=== PATIENT | male | born 1965 | race African-American/Black ===

== ENCOUNTER 2018-02-13 13:52 | Inpatient (IN) | payer OTHER ==
[2018-02-13 14:25] VITALS: BMI 22.1
--- NOTE | 2018-02-13 17:01 | HP ---
CIWA Score - CIWA Score Nausea/Vomitin Muscle Tremors: 2 Anxiety: 0-No Anxiety, at Ease Agitation: 1-Slight > Activity Paroxysmal Sweats: 2 Orientation: 1-Uncertain about Date Tacttile Disturbances: 0-None Auditory Disturbances: 1-Very Mild Visual Disturbances: 0-None Headache: 3-Moderate CIWA-Ar Total Score: 13 Admission ROS BHS - HPI Chief Complaint: I am here for detox, I am an alcoholic Allergies/Adverse Reactions: Allergies Allergy/AdvReac Type Severity Reaction Status Date / Time Fish Containing Products Allergy Severe Swelling Verified 02/13/18 16:47 Penicillins Allergy Severe Swelling Verified 02/13/18 16:47 History of Present Illness: 52 yo male with hx of nicotine, alcohol and cocaine dependence is here seeking detox. PMHX: hypelipdemia, alcophol relates seizure last episode 2015, right hip nreplacmeent 2011, bipolar d/o. Denies suicidla / homcidal ideationm or suicide attemtps. last detox three months ago at [facility]. Longest period of sobrierity 6 months. Exam Limitations: No Limitations - Ebola screening Have you traveled outside of the country in the last 21 days: No Have you had contact with anyone from an Ebola affected area: No Have you been sick,other than usual withdrawal symptoms: No Do you have a fever: No - Review of Systems Constitutional: Chills, Diaphoresis, Loss of Appetite, Changes in sleep, Unintentional Wgt. Loss (20 lbs) Respiratory: reports: No Symptoms reported Cardiac: reports: No Symptoms Reported GI: reports: Diarrhea, Nausea, Poor Appetite, Poor Fluid Intake, Vomiting : reports: Incontinence Musculoskeletal: reports: Back Pain (low midline) Integumentary: reports: No Symptoms Reported Neuro: reports: See HPI, Headache Endocrine: reports: Increased Thirst Hematology: reports: No Symptoms Reported Psychiatric: reports: Orientated x3, Depressed Other Systems: Reviewed and Negative Patient History - Patient Medical History Hx Anemia: No Hx Asthma: No Hx Chronic Obstructive Pulmonary Disease (COPD): No Hx Cancer: No Hx Cardiac Disorders: No Hx Congestive Heart Failure: No Hx Hypertension: No Hx Hypercholesterolemia: Yes (no meds ) Hx Pacemaker: No HX Cerebrovascular Accident: No Hx Seizures: No (2016 last episode ) Hx Dementia: No Hx Diabetes: No Hx Gastrointestinal Disorders: No Hx Liver Disease: No Hx Genitourinary Disorders: No Hx Sexually Transmitted Disorders: No Hx Renal Disease (ESRD): No Hx Thyroid Disease: No Hx Human Immunodeficiency Virus (HIV): No Hx Hepatitis C: No Hx Depression: Yes Hx Suicide Attempt: No Hx Bipolar Disorder: Yes Hx Schizophrenia: No - Patient Surgical History Past Surgical History: Yes Hx Neurologic Surgery: No Hx Cataract Extraction: No Hx Cardiac Surgery: No Hx Lung Surgery: No Hx Breast Surgery: No Hx Breast Biopsy: No Hx Abdominal Surgery: No Hx Appendectomy: No Hx Cholecystectomy: No Hx Genitourinary Surgery: No Hx Section: No Hx Orthopedic Surgery: Yes (R hip replacement in 2011) Hx Hysterectomy: No Anesthesia Reaction: No - PPD History Previous Implant?: Yes Documented Results: Negative w/o proof Implanted On Prior [facility] Admission?: No PPD to be Administered?: Yes - Reproductive History Patient is a Female of Child Bearing Age (11 -55 yrs old): No - Smoking Cessation Smoking history: Current every day smoker Have you smoked in the past 12 months: Yes Aproximately how many cigarettes per day: 20 Hx Chewing Tobacco Use: No Initiated information on smoking cessation: Yes 'Breaking Loose' booklet given: 02/13/18 - Substance & Tx. History Hx Alcohol Use: Yes Hx Substance Use: Yes Substance Use Type: Alcohol Hx Substance Use Treatment: Yes ([facility] three months ago ) - Substances Abused Alcohol Route: Oral Frequency: Daily Amount used: 3 PINTS VODKA Age of first use: 14 Date of Last Use: 02/12/18 Crack Route: Smoking Frequency: 3-6 times per week Amount used: $50 Age of first use: 28 Date of Last Use: 02/11/18 Family Disease History - Family Disease History Family Disease History: [place]: Father (), Mother ( ), Other: Father, Mother Admission Physical Exam BHS - Vital Signs Vital Signs: Vital Signs - 24 hr 02/13/18 14:20 Temperature 96.8 F L Pulse Rate 66 Respiratory 18 Rate Blood Pressure 107/61 - Physical General Appearance: Yes: Disheveled, Alcohol on Breath, Thin, Other (malodorous) HEENTM: Yes: EOMI, Hearing grossly Normal, Normal ENT Inspection, Normocephalic , Normal Voice, JOYCELYN, Pharynx Normal, Tm's normal, Other (poor dentitionm, wears glasses, dry oral mucosa) Respiratory: Yes: Chest Non-Tender, Lungs Clear, Normal Breath Sounds, No Respiratory Distress, No Accessory Muscle Use Neck: Yes: No masses,lesions,Nodules, Trachea in good position Breast: Yes: Breast Exam Deferred Cardiology: Yes: Regular Rhythm, Regular Rate Abdominal: Yes: Normal Bowel Sounds, Non Tender, Flat, Soft Genitourinary: Yes: Within Normal Limits Back: Yes: Normal Inspection Musculoskeletal: Yes: full range of Motion, Gait Steady, Pelvis Stable, Back pain Extremities: Yes: Normal Capillary Refill, Normal Inspection, Normal Range of Motion, Non-Tender Neurological: Yes: software technical lead II-XII NML intact, Fully Oriented, Alert, Motor Strength 5/5, Depressed Affect Integumentary: Yes: Normal Color, Warm, Moist Lymphatic: Yes: Within Normal Limits - Addiitonal Findings: utox positive benzo, reports "someone gave him a pill and I dont know what it was." Denies benzo use. - Diagnostic (1) Alcohol dependence with withdrawal Current Visit: Yes Status: Acute Qualifiers: Complication of substance-induced condition: uncomplicated Qualified Code(s ): F10.230 - Alcohol dependence with withdrawal, uncomplicated (2) Cocaine dependence Current Visit: Yes Status: Acute Qualifiers: Substance use status: uncomplicated Qualified Code(s): F14.20 - Cocaine dependence, uncomplicated (3) Hypercholesteremia Current Visit: Yes Status: Acute (4) Weight loss Current Visit: Yes Status: Acute (5) Psychiatric disorder Current Visit: Yes Status: Suspected (6) Urinary incontinence Current Visit: Yes Status: Acute Qualifiers: Urinary Incontinence type: unspecified incontinence Qualified Code(s): R32 - Unspecified urinary incontinence (7) Dehydration Current Visit: Yes Status: Acute Cleared for Admission S - Detox or Rehab [facility] Level of Care: Medically Managed Detox Regimen/Protocol: Librium [facility] Breath Alcohol Content Breath Alcohol Content: 0 Urine Drug Screen - Results Drug Screen Negative: Yes Urine Drug Screen Results: ANMOL-Cocaine, BZO-Benzodiazepines
[2018-02-13] MEDS ORDERED: LOPERAMIDE HCL 2 MG CAPSULE PO PRN (17:18)
[2018-02-13] MEDS ORDERED: MAGNESIUM CITRATE 300 ML BOTTLE PO PRN (17:18)
[2018-02-13] MEDS ORDERED: IBUPROFEN 400 MG TABLET (FP) PO PRN (17:18)
[2018-02-13] MEDS ORDERED: MENTHOL/PHENOL 1 EACH UD MM PRN (17:18)
[2018-02-13] MEDS ORDERED: P-EPHED 60MG/TRIPROLIDI 2.5MG TABLET PO PRN (17:18)
[2018-02-13] MEDS ORDERED: hydrOXYzine PAMOATE 50 MG CAPSULE (FP) PO PRN (17:18)
[2018-02-13] MEDS ORDERED: chlordiazePOXIDE HCL 25 MG CAPSULE PO PRN (17:18)
[2018-02-13] MEDS ORDERED: MAGNESIUM HYDROX 2400MG/30ML ORAL SUSPENSION 30 ML CUP PO PRN (17:18)
[2018-02-13] MEDS ORDERED: ACETAMINOPHEN 325 MG TABLET (FP) PO PRN (17:18)
[2018-02-13] MEDS ORDERED: NICOTINE POLACRILEX 2 MG GUM BC PRN (17:18)
[2018-02-13] MEDS ORDERED: guaiFENesin/D-METHORPHAN HB 10 ML UNIT-DOSE CUPS PO PRN (17:18)
[2018-02-13] MEDS ORDERED: MAG HYDROX/AL HYDROX/SIMETH 30 ML UNIT-DOSE CUP PO PRN (17:18)
[2018-02-13] MEDS: chlordiazePOXIDE HCL 25 MG CAPSULE PO SCH (22:16)
[2018-02-13] MEDS: THIAMINE HCL 100 MG TABLET (FP) PO SCH (22:16)
[2018-02-13] MEDS: MELATONIN 5 MG TABLETS PO PRN (22:17)
[2018-02-13 23:13] LABS: URINE APPEARANCE CLEAR; URINE BILIRUBIN NEGATIVE (<2.0 mg/dL); URINE COLOR YELLOW; URINE GLUCOSE (UA) NEGATIVE (NEGATIVE); URINE KETONE NEGATIVE (NEGATIVE); URINE LEUK ESTERASE NEGATIVE (NEGATIVE); URINE NITRITE NEGATIVE (NEGATIVE); URINE PROTEIN NEGATIVE (NEGATIVE); URINE UROBILINOGEN 4.0 E.U/dl mg/dL (0.2-1.0)
[2018-02-14] MEDS: chlordiazePOXIDE HCL 25 MG CAPSULE PO SCH ×4 (06:23→22:08)
[2018-02-14 09:50] LABS: HEMATOCRIT 35.5 % (35.4-49); HEMOGLOBIN 11.7 GM/dL (11.7-16.9); MCH 31.5 pg (25.7-33.7); MCHC 32.9 g/dl (32.0-35.9); MEAN CELL VOLUME 95.8 fl (80-96); MEAN PLT VOLUME 7.7 fl (7.5-11.1); PLATELET COUNT 366 K/MM3 (134-434); RBC 3.71 M/mm3 (4.00-5.60); RDW 16.8 % (11.9-15.9); WHITE BLOOD COUNT 8.5 K/mm3 (4.0-10.0)
--- NOTE | 2018-02-14 09:50 | EKG ---
Test Reason : Blood Pressure : / mmHG Vent. Rate : 062 BPM Atrial Rate : 062 BPM P-R Int : 158 ms QRS Dur : 094 ms QT Int : 444 ms P-R-T Axes : 079 071 078 degrees QTc Int : 450 ms NORMAL SINUS RHYTHM POSSIBLE LEFT ATRIAL ENLARGEMENT LEFT VENTRICULAR HYPERTROPHY ABNORMAL ECG NO PREVIOUS ECGS AVAILABLE Confirmed by JOLENE INGRAM MD ([id number]) on 02/14/2018 9:50:26 AM Referred By: Confirmed By:JOLENE INGRAM MD
[2018-02-14] MEDS: NICOTINE 21 MG/24 HOURS TOPICAL PATCH TD SCH (10:13)
[2018-02-14] MEDS: PRENATAL VITAMINS W/ FOLIC ACID TABLET (FP) PO SCH (10:13)
[2018-02-14 10:47] LABS: ALK PHOS 69 U/L (45-117); ANION GAP 5 (8-16); BILIRUBIN,TOTAL 0.1 mg/dL (0.2-1.0); BLOOD UREA NITROGEN 12 mg/dL (7-18); CALCIUM 8.4 mg/dL (8.5-10.1); CHLORIDE 107 mmol/L (98-107); CO2 29 mmol/L (21-32); CREATININE 0.7 mg/dL (0.7-1.3); GLUCOSE,RANDOM 95 mg/dL (74-106); POTASSIUM 3.7 mmol/L (3.5-5.1); SGOT/AST 22 U/L (15-37); SGPT/ALT 20 U/L (12-78); SODIUM 141 mmol/L (136-145); TOT PROT 5.9 g/dl (6.4-8.2)
[2018-02-14] MEDS ORDERED: PNEUMOCOCCAL 23 VACCINE 0.5 ML VIAL IM ONE (12:00)
[2018-02-14] MEDS ORDERED: PNEUMOC 13-VAL CONJ-DIP CRM/PF 0.5 ML DISP.SYRIN IM ONE (12:00)
--- NOTE | 2018-02-14 12:58 | PN ---
[facility] CIWA - CIWA Score Nausea/Vomitin-No Nausea/No Vomiting Muscle Tremors: 4-Moderate,w/Arms Extend Anxiety: 4-Mod. Anxious/Guarded Agitation: 4-Moderately Restless Paroxysmal Sweats: 1-Minimal Palms Moist Orientation: 0-Oriented Tacttile Disturbances: 3-Moderate Itch/Numb/Burn Auditory Disturbances: 0-None Visual Disturbances: 0-None Headache: 0-None Present CIWA-Ar Total Score: 16 S Progress Note (SOAP) Subjective: ANXIETY,SWEATS,SLIGHT TREMORS,FATIGUE. DENIES DIZZINESS. ALERT O X 3. Objective: 02/14/18 12:54 Vital Signs Temperature 96.9 F L 02/14/18 10:04 Pulse Rate 68 02/14/18 10:04 Respiratory Rate 16 02/14/18 10:04 Blood Pressure 94/52 02/14/18 10:04 O2 Sat by Pulse Oximetry (%) Laboratory Tests 02/13/18 02/14/18 02/14/18 19:53 07:30 07:30 WBC 8.5 RBC 3.71 L Hgb 11.7 Hct 35.5 MCV 95.8 MCH 31.5 MCHC 32.9 RDW 16.8 H Plt Count 366 MPV 7.7 Sodium 141 Potassium 3.7 Chloride 107 Carbon Dioxide 29 Anion Gap 5 L BUN 12 Creatinine 0.7 Creat Clearance w eGFR > 60 Random Glucose 95 Calcium 8.4 L Total Bilirubin 0.1 L AST 22 ALT 20 Alkaline Phosphatase 69 Total Protein 5.9 L Albumin 3.0 L Urine Color Yellow Urine Appearance Clear Urine pH 6.0 Ur Specific [place] 1.024 Urine Protein Negative Urine Glucose (UA) Negative Urine Ketones Negative Urine Blood Negative Urine Nitrite Negative Urine Bilirubin Negative Urine Urobilinogen 4.0 e.u/dl Ur Leukocyte Esterase Negative RPR Titer HIV 1&2 Antibody Screen HIV P24 Antigen 02/14/18 02/14/18 07:30 07:30 WBC RBC Hgb Hct MCV MCH MCHC RDW Plt Count MPV Sodium Potassium Chloride Carbon Dioxide Anion Gap BUN Creatinine Creat Clearance w eGFR Random Glucose Calcium Total Bilirubin AST ALT Alkaline Phosphatase Total Protein Albumin Urine Color Urine Appearance Urine pH Ur Specific [place] Urine Protein Urine Glucose (UA) Urine Ketones Urine Blood Urine Nitrite Urine Bilirubin Urine Urobilinogen Ur Leukocyte Esterase RPR Titer Nonreactive HIV 1&2 Antibody Screen Negative HIV P24 Antigen Negative Assessment: 02/14/18 12:58 WITHDRAWAL SX Plan: CONTINUE DETOX INCREASE PO FLUIDS. PITCHER BY BEDSIDE.
--- NOTE | 2018-02-14 13:34 | CONSULT ---
[facility] Psychiatric Consult - Data Date of interview: 02/14/18 Admission source: [facility] Identifying data: Readmission to [facility] for this 52 y/o AA male seeking detox treatment on for alcohol,cocaine and cannabis dependence.Patient is single without children,homeless,unemployed and supported on Public Assistance. Substance Abuse History: Confirmed by patient in this interview.Details in current [facility] report as followed : Smoking history: Current every day smoker. Have you smoked in the past 12 months: Yes. Aproximately how many cigarettes per day: 20. Hx Chewing Tobacco Use: No. Initiated information on smoking cessation: Yes. 'Breaking Loose' booklet given: 02/13/18. - Substance & Tx. History. Hx Alcohol Use: Yes. Hx Substance Use: Yes. Substance Use Type: Alcohol. Hx Substance Use Treatment: Yes ([facility] three months ago ) . - Substances Abused. Alcohol. Route: Oral. Frequency: Daily. Amount used: 3 PINTS VODKA. Age of first use: 14. Date of Last Use: 02/12/18. Crack. Route: Smoking. Frequency: 3-6 times per week. Amount used: $50. Age of first use: 28. Date of Last Use: 02/11/18 Medical History: Patient endorses good general health.Noted history of right hip replacement (2011). Psychiatric History: Diagnosed with Schizoaffective Disorder as per self- report.Patient admits to " a few " psychiatric hospitalizations ([facility]Used to be prescribed seroquel 300 mg/hs + buspar 30 mg/day + remeron 15 mg/hs.NOT taken for " more than three weeks ".Mr Fernandez reports no contact with regular [employer] care providers. " I go to emergency rooms to get my refills or when I get sick." Patient endorses two suicide attempts (ingestion of bleach / deliberate exposure to oncoming traffic ) in 2017. Physical/Sexual Abuse/Trauma History: Patient denies. Additional Comment: Urine Drug Screen Results: ANMOL-Cocaine, BZO- Benzodiazepines.Noted. Mental Status Exam - Mental Status Exam Alert and Oriented to: Time, Place, Person Cognitive Function: Good Patient Appearance: Disheveled Mood: Nervous, Withdrawn Affect: Mood Congruent Patient Behavior: Fatigued, Appropriate, Cooperative Speech Pattern: Clear Voice Loudness: Normal Thought Process: Intact, Goal Oriented Thought Disorder: Not Present Hallucinations: Denies Suicidal Ideation: Denies Homicidal Ideation: Denies Insight/Judgement: Poor Sleep: Poorly, Difficulty falling asleep Appetite: Good Muscle strength/Tone: Normal Gait/Station: Normal Psychiatric Findings - Problem List ([place] 1, 2,3) (1) Alcohol dependence with withdrawal Current Visit: Yes Status: Acute Qualifiers: Complication of substance-induced condition: uncomplicated Qualified Code(s ): F10.230 - Alcohol dependence with withdrawal, uncomplicated (2) Cocaine dependence Current Visit: Yes Status: Acute Qualifiers: Substance use status: uncomplicated Qualified Code(s): F14.20 - Cocaine dependence, uncomplicated (3) Nicotine dependence Current Visit: Yes Status: Acute (4) Substance induced mood disorder Current Visit: Yes Status: Acute (5) Schizoaffective disorder Current Visit: Yes Status: Chronic (6) Insomnia Current Visit: Yes Status: Acute (7) Non compliance w medication regimen Current Visit: Yes Status: Chronic - Initial Treatment Plan Initial Treatment Plan: Psychoeducation.Sleep hygiene.Detoxification.Medications : seroquel is held in view of hypotension + remeron 7.5 mg po hs.Side effects/benefits of both drugs are discussed with the oatient.Mr Fernandez agrees with this careplan.Observation.Reconciliation of medications : none found on file.
[2018-02-14] MEDS: MIRTAZAPINE 15 MG TABLET (FP) PO SCH (22:08)
[2018-02-14] MEDS: THIAMINE HCL 100 MG TABLET (FP) PO SCH (22:09)
[2018-02-14] MEDS: MELATONIN 5 MG TABLETS PO PRN (22:10)
[2018-02-15] MEDS: chlordiazePOXIDE HCL 25 MG CAPSULE PO SCH ×3 (05:55→17:51)
[2018-02-15] MEDS: PRENATAL VITAMINS W/ FOLIC ACID TABLET (FP) PO SCH (10:33)
[2018-02-15] MEDS: NICOTINE 21 MG/24 HOURS TOPICAL PATCH TD SCH (10:34)
--- NOTE | 2018-02-15 14:13 | PN ---
S CIWA - CIWA Score Nausea/Vomitin-No Nausea/No Vomiting Muscle Tremors: 3 Anxiety: 0-No Anxiety, at Ease Agitation: 2 Paroxysmal Sweats: 3 Orientation: 0-Oriented Tacttile Disturbances: 2-Mild Itch/Numbness/Burn Auditory Disturbances: 0-None Visual Disturbances: 2-Mild Sensitivity Headache: 3-Moderate CIWA-Ar Total Score: 15 BHS Progress Note (SOAP) Subjective: Body Aches, H/A, Sweating, Fatigue, Tremors. Objective: PATIENT A & O X 3. NO ACUTE DISTRESS. 02/15/18 14:13 Vital Signs Temperature 95.8 F L 02/15/18 09:26 Pulse Rate 77 02/15/18 09:26 Respiratory Rate 16 02/15/18 09:26 Blood Pressure 108/60 02/15/18 09:26 O2 Sat by Pulse Oximetry (%) Laboratory Tests 02/13/18 02/14/18 02/14/18 19:53 07:30 07:30 WBC 8.5 RBC 3.71 L Hgb 11.7 Hct 35.5 MCV 95.8 MCH 31.5 MCHC 32.9 RDW 16.8 H Plt Count 366 MPV 7.7 Sodium 141 Potassium 3.7 Chloride 107 Carbon Dioxide 29 Anion Gap 5 L BUN 12 Creatinine 0.7 Creat Clearance w eGFR > 60 Random Glucose 95 Calcium 8.4 L Total Bilirubin 0.1 L AST 22 ALT 20 Alkaline Phosphatase 69 Total Protein 5.9 L Albumin 3.0 L Urine Color Yellow Urine Appearance Clear Urine pH 6.0 Ur Specific [place] 1.024 Urine Protein Negative Urine Glucose (UA) Negative Urine Ketones Negative Urine Blood Negative Urine Nitrite Negative Urine Bilirubin Negative Urine Urobilinogen 4.0 e.u/dl Ur Leukocyte Esterase Negative RPR Titer HIV 1&2 Antibody Screen HIV P24 Antigen 02/14/18 02/14/18 07:30 07:30 WBC RBC Hgb Hct MCV MCH MCHC RDW Plt Count MPV Sodium Potassium Chloride Carbon Dioxide Anion Gap BUN Creatinine Creat Clearance w eGFR Random Glucose Calcium Total Bilirubin AST ALT Alkaline Phosphatase Total Protein Albumin Urine Color Urine Appearance Urine pH Ur Specific [place] Urine Protein Urine Glucose (UA) Urine Ketones Urine Blood Urine Nitrite Urine Bilirubin Urine Urobilinogen Ur Leukocyte Esterase RPR Titer Nonreactive HIV 1&2 Antibody Screen Negative HIV P24 Antigen Negative LABS NOTED. Assessment: 02/15/18 14:14 WITHDRAWAL SYMPTOMS. Plan: CONTINUE DETOX. INCREASE DAILY PO FLUID INTAKE.
--- NOTE | 2018-02-15 14:40 | EKG ---
Test Reason : Blood Pressure : / mmHG Vent. Rate : 068 BPM Atrial Rate : 068 BPM P-R Int : 162 ms QRS Dur : 096 ms QT Int : 440 ms P-R-T Axes : 077 068 081 degrees QTc Int : 467 ms NORMAL SINUS RHYTHM MINIMAL VOLTAGE CRITERIA FOR LVH, MAY BE NORMAL VARIANT NONSPECIFIC T WAVE ABNORMALITY PROLONGED QT ABNORMAL ECG WHEN COMPARED WITH ECG OF 13-FEB-2018 19:16, T WAVE INVERSION NOW EVIDENT IN ANTERIOR LEADS Confirmed by MD Bhavesh, Rodrigo ([id number]) on 02/15/2018 2:40:16 PM Referred By: Confirmed By:Rodrigo Ospina MD
--- NOTE | 2018-02-15 18:52 | PN ---
Psychiatric Progress Note Vital Signs: Vital Signs Period Temp Pulse Resp BP Sys/Cates Pulse Ox Last 24 Hr 95.8 F-97.9 F 69-77 16-18 95-116/55-64 Date of Session: 02/15/18 Chief Complaint:: " My blood pressure is fine now.I need my seroquel to sleep." HPI: Psychiatric reconsultation is sought for medication management.Patient is doing fine.Mr Fernandez is currently complaining of insomnia and he is requesting a dose of seroquel at bedtime. Current Medications: Active Medications Generic Name Dose Route Start Last Admin Trade Name Freq PRN Reason Stop Dose Admin Acetaminophen 650 mg 02/13/18 17:18 Tylenol - PO Q4H PRN FEVER Al Hydroxide/Mg Hydroxide 30 ml 02/13/18 17:18 Mylanta Oral Suspension - PO Q6H PRN DYSPEPSIA Chlordiazepoxide HCl 15 mg 02/15/18 23:00 Librium - PO 02/16/18 17:01 [id number] RUPERTO Chlordiazepoxide HCl 25 mg 02/13/18 17:18 02/13/18 19:11 Librium - PO 02/16/18 17:17 25 mg Q4H PRN Administration WITHDRAWAL(CONT SUBST) Chlordiazepoxide HCl 10 mg 02/16/18 23:00 Librium - PO 02/17/18 17:01 [id number] RUPERTO Eucalyptus/Menthol/Phenol/Sorbitol 1 each 02/13/18 17:18 Cepastat Lozenge - MM Q4H PRN SORE THROAT Guaifenesin 10 ml 02/13/18 17:18 Robitussin Dm - PO Q6H PRN COUGH Hydroxyzine Pamoate 50 mg 02/13/18 17:18 Vistaril - PO Q4H PRN AGITATION Ibuprofen 400 mg 02/13/18 17:18 Motrin - PO Q6H PRN PAIN LEVEL 4-6 Loperamide HCl 4 mg 02/13/18 17:18 Imodium - PO Q6H PRN DIARRHEA Magnesium Citrate 300 ml 02/13/18 17:18 Citroma - PO Q48H PRN CONSTIPATION Magnesium Hydroxide 30 ml 02/13/18 17:18 Milk Of Magnesia - PO DAILY PRN CONSTIPATION Melatonin 5 mg 02/13/18 22:00 02/14/18 22:10 Melatonin PO 5 mg HS PRN Administration INSOMNIA Mirtazapine 7.5 mg 02/14/18 22:00 02/14/18 22:08 Remeron - PO 7.5 mg HS RUPERTO Administration Nicotine 21 mg 02/14/18 10:00 02/15/18 10:34 Nicoderm Patch - TD 21 mg DAILY RUPERTO Administration Nicotine Polacrilex 2 mg 02/13/18 17:18 Nicorette Gum - BC Q2H PRN NICOTINE REPLACEMENT RX Multivit/Folic Acid/Iron 1 tab 02/14/18 10:00 02/15/18 10:33 Vitamins (Sjr) - PO 1 tab DAILY RUPERTO Administration Pseudoephedrine/Triprolidine 1 combo 02/13/18 17:18 Actifed - PO TID PRN NASAL CONGESTION Thiamine HCl 100 mg 02/13/18 22:00 02/14/18 22:09 Vitamin B1 - PO 100 mg HS RUPERTO Administration Medication(s) Change(s): Seroquel 100 mg po hs.Ordered.Side effects/benefits are discussed with the patient.Mr Fernandez agrees with this careplan. Current Side Effect: No Lab tests ordered: No Lab tests reviewed: Yes Provider note:: Met with the patient.Medication discussed.Mr Fernandez reports refractory insomnia and requested re-introduction of seroquel.Will resume the drug at 100 mg po hs.Patient agrees. Total face to face time:: 25 Mental Status Exam - Mental Status Exam Alert and Oriented to: Time, Place, Person Cognitive Function: Good Patient Appearance: Well Groomed Mood: Withdrawn, Anxious, Hopeful Affect: Appropriate Patient Behavior: Fatigued, Cooperative Speech Pattern: Clear, Appropriate Voice Loudness: Normal Thought Process: Goal Oriented Thought Disorder: Not Present Hallucinations: Denies Suicidal Ideation: Denies Homicidal Ideation: Denies Insight/Judgement: Poor Sleep: Poorly, Difficulty falling asleep Appetite: Good Muscle strength/Tone: Normal Gait/Station: Normal Psychiatric Treatment Plan - Problem List (1) Alcohol dependence with withdrawal Current Visit: Yes Qualifiers: Complication of substance-induced condition: uncomplicated Qualified Code(s ): F10.230 - Alcohol dependence with withdrawal, uncomplicated (2) Cocaine dependence Current Visit: Yes Qualifiers: Substance use status: uncomplicated Qualified Code(s): F14.20 - Cocaine dependence, uncomplicated (3) Nicotine dependence Current Visit: Yes (4) Substance induced mood disorder Current Visit: Yes (5) Schizoaffective disorder Current Visit: Yes (6) Insomnia Current Visit: Yes (7) Non compliance w medication regimen Current Visit: Yes
[2018-02-15] MEDS: chlordiazePOXIDE 5 MG CAPSULE PO SCH (22:31)
[2018-02-15] MEDS: QUEtiapine FUMARATE 100 MG TABLET (FP) PO SCH (22:32)
[2018-02-15] MEDS: THIAMINE HCL 100 MG TABLET (FP) PO SCH (22:32)
[2018-02-15] MEDS: MIRTAZAPINE 15 MG TABLET (FP) PO SCH (22:32)
[2018-02-16] MEDS: chlordiazePOXIDE 5 MG CAPSULE PO SCH ×3 (05:56→17:22)
--- NOTE | 2018-02-16 08:30 | HP ---
Psychiatrist Admission - Data Vital Signs: Vital Signs - 24 hr 02/15/18 02/15/18 02/15/18 09:26 14:19 17:28 Temperature 95.8 F L 95.8 F L 97.9 F Pulse Rate 77 76 76 Respiratory 16 18 18 Rate Blood Pressure 108/60 104/55 116/64 02/15/18 02/16/18 02/16/18 21:57 00:26 06:28 Temperature 96.3 F L 97.2 F L Pulse Rate 80 77 Respiratory 18 18 18 Rate Blood Pressure 112/62 111/63 02/16/18 06:30 Temperature Pulse Rate Respiratory 18 Rate Blood Pressure Allergies/Adverse Reactions: Allergies Allergy/AdvReac Type Severity Reaction Status Date / Time Fish Containing Products Allergy Severe Swelling Verified 02/13/18 16:47 Penicillins Allergy Severe Swelling Verified 02/13/18 16:47
[2018-02-16] MEDS: PRENATAL VITAMINS W/ FOLIC ACID TABLET (FP) PO SCH (10:37)
[2018-02-16] MEDS: NICOTINE 21 MG/24 HOURS TOPICAL PATCH TD SCH (10:38)
--- NOTE | 2018-02-16 12:34 | PN ---
BHS Progress Note (SOAP) Subjective: ANXIETY, DIARRHEA, SWEATS/CHILLS,INTERMITTENT SLEEP. Objective: 02/16/18 12:33 Vital Signs 02/16/18 02/16/18 02/16/18 06:28 06:30 09:27 Temperature 97.2 F L 96.6 F L Pulse Rate 77 78 Respiratory 18 18 18 Rate Blood Pressure 111/63 129/84 Laboratory Tests 02/13/18 02/14/18 02/14/18 19:53 07:30 07:30 WBC 8.5 RBC 3.71 L Hgb 11.7 Hct 35.5 MCV 95.8 MCH 31.5 MCHC 32.9 RDW 16.8 H Plt Count 366 MPV 7.7 Sodium 141 Potassium 3.7 Chloride 107 Carbon Dioxide 29 Anion Gap 5 L BUN 12 Creatinine 0.7 Creat Clearance w eGFR > 60 Random Glucose 95 Calcium 8.4 L Total Bilirubin 0.1 L AST 22 ALT 20 Alkaline Phosphatase 69 Total Protein 5.9 L Albumin 3.0 L Urine Color Yellow Urine Appearance Clear Urine pH 6.0 Ur Specific [place] 1.024 Urine Protein Negative Urine Glucose (UA) Negative Urine Ketones Negative Urine Blood Negative Urine Nitrite Negative Urine Bilirubin Negative Urine Urobilinogen 4.0 e.u/dl Ur Leukocyte Esterase Negative RPR Titer HIV 1&2 Antibody Screen HIV P24 Antigen 02/14/18 02/14/18 07:30 07:30 WBC RBC Hgb Hct MCV MCH MCHC RDW Plt Count MPV Sodium Potassium Chloride Carbon Dioxide Anion Gap BUN Creatinine Creat Clearance w eGFR Random Glucose Calcium Total Bilirubin AST ALT Alkaline Phosphatase Total Protein Albumin Urine Color Urine Appearance Urine pH Ur Specific [place] Urine Protein Urine Glucose (UA) Urine Ketones Urine Blood Urine Nitrite Urine Bilirubin Urine Urobilinogen Ur Leukocyte Esterase RPR Titer Nonreactive HIV 1&2 Antibody Screen Negative HIV P24 Antigen Negative Assessment: 02/16/18 12:33 WITHDRAWAL SX Plan: CONTINUE DETOX
[2018-02-16] MEDS: QUEtiapine FUMARATE 100 MG TABLET (FP) PO SCH (22:31)
[2018-02-16] MEDS: THIAMINE HCL 100 MG TABLET (FP) PO SCH (22:31)
[2018-02-16] MEDS: chlordiazePOXIDE HCL 10 MG CAPSULE PO SCH (22:31)
[2018-02-16] MEDS: MIRTAZAPINE 15 MG TABLET (FP) PO SCH (22:32)
[2018-02-17] MEDS: chlordiazePOXIDE HCL 10 MG CAPSULE PO SCH ×2 (07:25→10:20)
[2018-02-17 09:15] VITALS: BP 110/71; PULSE 77; TEMP 97.1
[2018-02-17] MEDS: PRENATAL VITAMINS W/ FOLIC ACID TABLET (FP) PO SCH (10:19)
[2018-02-17] MEDS: NICOTINE 21 MG/24 HOURS TOPICAL PATCH TD SCH (10:20)
--- NOTE | 2018-02-17 13:39 | PN ---
S Progress Note (SOAP) Subjective: Denies any complaint Objective: 02/17/18 13:38 A & O x 3 Vital Signs Temperature 97.1 F L 02/17/18 09:15 Pulse Rate 77 02/17/18 09:15 Respiratory Rate 18 02/17/18 09:15 Blood Pressure 110/71 02/17/18 09:15 O2 Sat by Pulse Oximetry (%) Assessment: 02/17/18 13:38 detox completed Plan: For discharge
--- NOTE | 2018-02-17 13:41 | DS ---
[facility] Detox Discharge Summary Admission Date: 02/13/18 Discharge Date: 02/17/18 - History Present History: Alcohol Dependence, Cocaine Dependence Additional Comments: Pt in stable condition For discharge Rehab at [facility] - Physical Exam Results Vital Signs: Vital Signs Temperature 97.1 F L 02/17/18 09:15 Pulse Rate 77 02/17/18 09:15 Respiratory Rate 18 02/17/18 09:15 Blood Pressure 110/71 02/17/18 09:15 O2 Sat by Pulse Oximetry (%) Pertinent Admission Physical Exam Findings: withdrawal sx - Medication Discharge Medications: Ambulatory Orders NK [No Known Home Medication] 02/13/18 - Diagnosis (1) Alcohol dependence with withdrawal Current Visit: Yes Status: Acute Qualifiers: Complication of substance-induced condition: uncomplicated Qualified Code(s ): F10.230 - Alcohol dependence with withdrawal, uncomplicated (2) Cocaine dependence Current Visit: Yes Status: Chronic Qualifiers: Substance use status: uncomplicated Qualified Code(s): F14.20 - Cocaine dependence, uncomplicated (3) Dehydration Current Visit: Yes Status: Acute (4) Insomnia Current Visit: Yes Status: Chronic (5) Nicotine dependence Current Visit: Yes Status: Acute (6) Weight loss Current Visit: Yes Status: Acute (7) Hypercholesteremia Current Visit: Yes Status: Chronic (8) Schizoaffective disorder Current Visit: Yes Status: Chronic - AMA Did Patient Leave Against Medical Advice: No
== END 2018-02-17 16:05 | disposition home or self-care (01) | DRG 774 ==
LOC: YASAS 13:52 → Y3N 17:15
PROVIDERS: ADMIT Internal Medicine; ATTEND Internal Medicine
PROC: HZ2ZZZZ Detoxification Services for Substance Abuse Treatment (ICD-10-PCS; principal; 2018-02-13)
DX: F10.230 Alcohol dependence with withdrawal, uncomplicated (principal); F14.20 Cocaine dependence, uncomplicated; F17.210 Nicotine dependence, cigarettes, uncomplicated; F59 Unspecified behavioral syndromes associated with physiological disturbances and physical factors; F31.9 Bipolar disorder, unspecified; F19.24 Other psychoactive substance dependence with psychoactive substance-induced mood disorder; G47.00 Insomnia, unspecified; E86.0 Dehydration; E78.5 Hyperlipidemia, unspecified; E78.00 Pure hypercholesterolemia, unspecified; R63.4 Abnormal weight loss; Z68.22 Body mass index [BMI] 22.0-22.9, adult; R32 Unspecified urinary incontinence; Z96.641 Presence of right artificial hip joint; Z86.69 Personal history of other diseases of the nervous system and sense organs; Z59.0 Homelessness
CPT/HCPCS: 36415; 80053; 81003; 85027; 86593; 87389; 90732; 93005; 93010; G0009